=== PATIENT | male | born 1955 | race Two or more races ===

== ENCOUNTER 2024-05-24 05:35 | Day surgery (SDC) | payer MEDICARE, BC, SELFPAY ==
[2024-05-21 06:44] VITALS: BMI 33.2
[2024-05-21 08:19] LABS: Basophils # (Auto) 0.1 Thou/mm3 (0.0-0.2); Basophils % (Auto) 1 % (0-2.5); Eosinophils # (Auto) 0.1 Thou/mm3 (0.0-0.5); Eosinophils % (Auto) 3 % (0-10); Hemoglobin 15.1 g/dL (13.5-16.0); Immature Granulocytes % (Auto) 1 % (0-0); Immature Granulocytes Auto 0.03 Thou/mm3 (0.00-0.00); Lymphocytes # (Auto) 1.3 Thou/mm3 (1.0-4.8); Lymphocytes % (Auto) 27 % (10-50); Mean Corpuscular HGB Conc 34.3 g/dl (31.0-37.0); Mean Corpuscular Hemoglobin 30.9 pg (25.0-35.0); Mean Corpuscular Volume 90 fL (80-100); Monocytes # (Auto) 0.6 Thou/mm3 (0.0-0.8); Monocytes % (Auto) 13 % (0-12); Neutrophils # (Auto) 2.9 Thou/mm3 (1.8-7.7); Neutrophils % (Auto) 57 % (37-80); Nucleated Red Blood Cell % 0 /100 WBC (0); Platelet Count 168 Thou/mm3 (140-440); Red Blood Count 4.88 Miln/mm3 (4.50-5.90)
[2024-05-21 08:32] LABS: Alanine Aminotransferase 24 U/L (10-49); Albumin, Serum 4.9 gm/dL (3.4-4.8); Albumin/Globulin Ratio 1.9 (1.2-2.2); Alkaline Phosphatase 78 U/L (46-116); Anion Gap 7 (7-16); Aspartate Amino Transferase 24 U/L (0-34); BUN/Creatinine Ratio 21 Ratio (12-20); Bilirubin,Total 0.8 mg/dL (0.3-1.2); Blood Urea Nitrogen 23 mg/dL (9-23); Calcium 9.4 mg/dL (8.3-10.6); Calcium (Corrected) 9.4 mg/dL (8.5-10.1); Chloride 102 mMol/L (98-107); Creatinine (Component) 1.1 mg/dL (0.6-1.3); Estimated Creatinine Clearance 67.8 mL/min (>60); Globulin 2.6 gm/dL (2.3-3.5); Glucose 106 mg/dL (74-106); Osmolality,Calculated 277 (275-295); Potassium 4.4 mMol/L (3.4-5.1); Sodium 137 mMol/L (136-145); Total Protein 7.5 gm/dL (5.7-8.2); eGFR > 60 See Note
[2024-05-21 09:42] LABS: INR 1.8 (0.9-1.3); Partial Thromboplastin Time 83.1 Seconds (22.0-36.0); Prothrombin Time 18.9 Seconds (9.0-12.2)
--- NOTE | 2024-05-21 15:32 | SUR.PREOP ---
Pt takes coumadin, Last dose Friday, pt was prescribed lovenox IM during the time he is not taking coumadin, Dr Winter notified, Pt INR order on arrival and also cardiac records reviewed with Dr Winter.
--- NOTE | 2024-05-21 20:11 | ESHP_ITS ---
RE: SIMON COLLINS : 1955 DATE OF ADMISSION: 05/24/2024 DATE OF SURGERY: 05/24/2024 CHIEF COMPLAINT: Pain, right knee. HISTORY OF PRESENT ILLNESS: The patient is a 68-year-old who has pain in his right knee. It is along the medial joint line. It is activity related. He has pain on exam. MRI scan consistent with a torn medial meniscus. His past medical history was reviewed. , with three children. BLOOD TRANSFUSION: Yes. OPERATIONS: 1. Cholecystectomy. 2. Back surgery x3 with fusion. 3. Left knee surgery. 4. Carpal tunnel surgery, right hand. ALLERGIES: FLOMAX. MEDICATIONS: 1. Metoprolol 2. Warfarin 3. ProAir 4. Aspirin 5. Acyclovir 6. Folic acid MAJOR MEDICAL ILLNESSES: Hypertension and arthritis. FAMILY HISTORY: Positive for TB, heart disease, myocardial infarction. REVIEW OF SYSTEMS: Weight is stable. Appetite is good. Energy level is good. Denies chest pain, productive cough, hemoptysis, hematemesis, hematochezia, melena, black tarry bowel movements. Denies dysuria or prior hematuria. Denies strokes, seizures, or syncopal episodes. No skin problems or change in moles. No rashes. No seizures. The patient does not smoke. Does not drink. PHYSICAL EXAMINATION: GENERAL: Shows well-developed, well-nourished male, in no acute distress. HEENT: Normocephalic without masses. EOMs full. Throat clear. NECK: Supple. CHEST: Clear to PA. HEART: Regular rate and rhythm. No murmurs or gallops. ABDOMEN: Soft, nontender. No masses. No organomegaly. BREASTS: Deferred. RECTAL: Deferred. GENITAL: Deferred. EXTREMITIES: Examination of the extremity shows that he has pain in his right knee. He has pain with valgus stress and Martin maneuver. Shree and drawer signs are negative. No genu recurvatum. Tibia does not stay posteriorly on the femur. Patellofemoral crepitus present. Grab test negative. ASSESSMENT: Torn medial meniscus, right knee. PLAN: Arthroscopic partial medial meniscectomy, right knee. Risks of procedure were explained to the patient, understanding and willing to proceed. DT: 18:52:52 TT: 20:11:00 Ref: [id number] - TID: [id number]
--- NOTE | 2024-05-21 20:16 | ESHP_ITS ---
RE: SIMON COLLINS : 1955 DATE OF ADMISSION: 05/24/2024 CHIEF COMPLAINT: Pain in right knee. HISTORY OF PRESENT ILLNESS: The patient is a 68-year-old male who has pain in his right knee. It is along the medial joint line. It is activity related. Changed position causes discomfort. He has catching and locking. He is not complaining of any pain in his right hip, right ankle, or foot. PAST MEDICAL HISTORY: His past medical history was reviewed. SOCIAL HISTORY: He is , with three children. BLOOD TRANSFUSIONS: Yes. OPERATIONS: 1. Cholecystectomy. 2. Back surgeries x3 with fusion. 3. Left knee surgery. 4. Carpal tunnel release. ALLERGIES: FLOMAX. MEDICATIONS: 1. Metoprolol. 2. Cialis. 3. Warfarin. 4. ProAir. 5. Aspirin. 6. Acyclovir. 7. Folic acid. MAJOR MEDICAL ILLNESSES: Hypertension, arthritis. FAMILY HISTORY: Positive for TB, heart disease, myocardial infarction. REVIEW OF SYSTEMS: Weight is stable. Appetite is good. Energy level is good. No chest pain, shortness of breath, orthopnea, paroxysmal nocturnal dyspnea, dyspnea on exertion, productive cough, or hemoptysis. No nausea, vomiting, diarrhea, constipation, hematemesis, hematochezia, melena, or black or tarry bowel movements. Denies dysuria or prior hematuria. Denies strokes, seizures, or syncopal episodes. The patient does not smoke. The patient does not drink. PHYSICAL EXAMINATION: GENERAL: Shows a well-developed, well-nourished male in no acute distress. He is alert and oriented. HEENT: Normocephalic and without masses. EOMs full without nystagmus. Pupils are equal, round, and reactive to light and accommodation. NECK: Supple. CHEST: Clear to P and A. No rales. No rhonchi and no wheezes. CARDIOVASCULAR: Heart has a regular rate and rhythm. No murmurs or gallops. ABDOMEN: Soft and nontender. No masses. No organomegaly. EXTREMITIES: Examination of his right knee shows he has pain along the medial joint line, pain with flexion and extension of his knee. He has pain with valgus stress and Martin maneuver. He does have a 1+ effusion. There is no pain over the quadriceps or patellar tendon. Patellofemoral crepitus. Minimal graft test negative. ASSESSMENT: Torn medial meniscus, right knee. PLAN: Arthroscopic partial medial meniscectomy. Risks of the procedure were explained to the patient. A signed informed consent was obtained in my office. DT: 18:57:05 TT: 20:14:00 Ref: [id number] - TID: [id number]
[2024-05-24] VITALS (7 sets, daily range): BP systolic 118–135; BP diastolic 68–78; PULSE 70–80; RESP 12–18; TEMP 36.6–36.9; O2SAT 94–100; BMI 32.9
[2024-05-24] MEDS: RINGERS LACTATED 1000 ML 1,000 ML 20 ML IV (07:01)
[2024-05-24 08:20] LABS: INR 1.2 (0.9-1.3)
--- NOTE | 2024-05-24 09:24 | SUR.PHASEI ---
0924 Patient arrived to recovery, LMA removed upon arrival, oxygen therapy initated 4L via oxy mask, breathing unlabored, vital signs stable, denies pain, dressing intact to right knee; ointment, fluffs soaked in dankins, abd, bais roll, stockinette, no bleeding noted, lung sounds clear upon auscultation, left dorsalis pedis pulses present when palapted, right posterior tibial pulses present with doppler, report received from Meng REAL and Diane GASPAR
--- NOTE | 2024-05-24 09:41 | ESOP_ITS ---
Date of Procedure 05/24/24 Pre Op Diagnosis Tear medial meniscus right knee Post Op Diagnosis 1. Tear medial meniscus right knee 2. Plica right knee Procedure 1. Arthroscopic partial medial meniscectomy right knee 2. Resection medial plica Findings Complex cleavage and radial tear posterior one third medial meniscus, hypertrophied medial plica Procedure Description Patient taken the operating room and the right knee was Enduronyl foot is the correct extremity. He was placed in the leg quach after general anesthesia was initiated. He received 2 g of Ancef. Superior medial anterior medial anterior lateral stab wounds were done using an 18-gauge spinal needle for portal placement. Instruments were introduced The patient had a large medial plica which was removed with the shaver. The medial joint compartment was entered and was noted to have a complex tear of the posterior one third of the medial meniscus with radial and cleavage components being present. It was removed with the nicolas basket and contoured with the 3.5 mm full-radius resector. It was probed and no additional tears present Anterior cruciate ligament intact. Lateral joint compartment was entered and the lateral meniscus was probed noted be intact there was no chondromalacia of the medial or lateral femoral condyles the patellofemoral joint looked unremarkable. Arthroscopic portals closed with a 4-0 nylon. Knee then distended with Marcaine and Duramorph. Bulky dressing was applied using Dakin soaked Kerlix sponges over Bactroban ointment dry Kerlix sponges ABD pad and 6 inch cut bias secured with net dressing. He was taken recovery room uneventfully. Sponge and needle counts correct. He was able to actively flex and extend his toes and feet. I shared the pictures with the family and gave them a set of his arthroscopic pictures and was told to bring those with him tomorrow when we see him in the office. He was told he could weight-bear to tolerance Anesthesia GETA Implants None Pathology / specimen None IVF Infused 650 Urine Output 0 Estimated Blood Loss 15 Condition Stable Disposition PACU Surgeon Hakeem Taylor MD Surgical Staff Operation Date: 05/24/24 07:30 Case Staff DONKEY RIDE OPERATOR: Yogesh Mena
--- NOTE | 2024-05-24 10:21 | SUR.PHASEII ---
1021 Patient meets discharge criteria from recovery, awake and alert, breathing unlabored, vital signs stable, denies pain, dressing intact; no bleeding noted, patient drinking apple juice, denies nausea, patient assisted with dressing into his clothing by his , discharge instructions given to patient and patients , signed discharge instructions. Patient given all his belongings prior to discharge, transported via wheelchair and left in a private vehicle.
== END 2024-05-24 10:21 | disposition home or self-care (01) ==
PROVIDERS: Anesthesiology; PCP Specialist; Referring Provider Orthopaedic Surgery; Visit Provider Orthopaedic Surgery
PROC: (CPT 29870; principal; 2024-05-24 07:30)
DX: S83.241A Other tear of medial meniscus, current injury, right knee, initial encounter (principal); M67.51 Plica syndrome, right knee; Z82.49 Family history of ischemic heart disease and other diseases of the circulatory system
CPT/HCPCS: 29881; 36415; 80053; 85025; 85610; 85730; A4217; A4649; J0690; J2250; J2274; J2704; J2795; J2919; J3010; J3490; J7120; A9270; J0665; J2270

== ENCOUNTER → 2024-05-31 | Outpatient (CLI) | payer MEDICARE, BC, SELFPAY ==
--- NOTE | 2024-05-31 | XR_ITS ---
Examination: Right elbow 3 views Technique: Elbow AP, oblique, lateral 3 views Exam date and time: May 31, 2024 1142 hours INDICATIONS: Elbow pain beginning 4 days ago. FINDINGS: Mild elbow osteoarthritis. No fracture. No dislocation IMPRESSION: Mild elbow osteoarthritis.
== END | disposition home or self-care (01) ==
PROVIDERS: PCP Specialist; Referring Provider Orthopaedic Surgery; Visit Provider Orthopaedic Surgery
DX: M19.021 Primary osteoarthritis, right elbow (principal)
CPT/HCPCS: 73080

== ENCOUNTER → 2024-09-02 | Outpatient (CLI) | payer OTHER, SELFPAY ==
--- NOTE | 2024-09-02 14:29 | XR_ITS ---
Examination: Shoulder,left, 3 views Technique: Shoulder AP internal rotation, AP external rotation, Y view shoulder, 3 views Exam date and time :September 02, 2024 1431 hours INDICATIONS: Left shoulder pain several years. FINDINGS: Moderate osteoarthritis glenohumeral joint No fracture or shoulder dislocation No calcific tendinitis IMPRESSION: Moderate osteoarthritis glenohumeral joint
== END | disposition home or self-care (01) ==
LOC: CDIM 14:13
PROVIDERS: PCP Specialist; Referring Provider Orthopaedic Surgery; Visit Provider Orthopaedic Surgery
DX: M19.012 Primary osteoarthritis, left shoulder (principal)
CPT/HCPCS: 73030

== ENCOUNTER → 2024-10-19 | Outpatient (CLI) | payer MEDICARE, BC, SELFPAY ==
[2024-10-19 16:41] LABS: Basophils % (Auto) 1 % (0-2.5); Eosinophils # (Auto) 0.1 Thou/mm3 (0.0-0.5); Eosinophils % (Auto) 2 % (0-10); Hematocrit 43.8 % (41.0-53.0); Hemoglobin 15.2 g/dL (13.5-16.0); Immature Granulocytes % (Auto) 0 % (0-0); Immature Granulocytes Auto 0.02 Thou/mm3 (0.00-0.00); Lymphocytes # (Auto) 1.6 Thou/mm3 (1.0-4.8); Lymphocytes % (Auto) 26 % (10-50); Mean Corpuscular HGB Conc 34.7 g/dl (31.0-37.0); Mean Corpuscular Hemoglobin 31.6 pg (25.0-35.0); Mean Corpuscular Volume 91 fL (80-100); Monocytes # (Auto) 0.7 Thou/mm3 (0.0-0.8); Monocytes % (Auto) 11 % (0-12); Neutrophils # (Auto) 3.8 Thou/mm3 (1.8-7.7); Neutrophils % (Auto) 60 % (37-80); Nucleated Red Blood Cell % 0 /100 WBC (0); Platelet Count 162 Thou/mm3 (140-440); RDW Standard Deviation 44.4 fL (35.1-43.9); Red Blood Count 4.81 Miln/mm3 (4.50-5.90); White Blood Count 6.3 Thou/mm3 (3.8-10.6)
[2024-10-19 16:46] LABS: INR 2.3 (0.9-1.3); Prothrombin Time 24.1 Seconds (9.0-12.2)
[2024-10-19 16:59] LABS: Glucose Estimated Average 120 mg/dL (80-131); Hemoglobin A1C 5.8 % Hgb (4.8-6.0)
[2024-10-19 17:05] LABS: Alanine Aminotransferase 25 U/L (10-49); Albumin, Serum 4.6 gm/dL (3.4-4.8); Albumin/Globulin Ratio 1.8 (1.2-2.2); Alkaline Phosphatase 100 U/L (46-116); Anion Gap 8 (7-16); Aspartate Amino Transferase 24 U/L (0-34); BUN/Creatinine Ratio 21 Ratio (12-20); Bilirubin,Total 0.6 mg/dL (0.3-1.2); Blood Urea Nitrogen 21 mg/dL (9-23); C-Reactive Protein < 0.5 mg/dL (0.0-0.9); Carbon Dioxide 25.9 mMol/L (20.0-31.0); Cardiac Risk Estimate 2.9 RATIO (4.0-6.7); Chloride 107 mMol/L (98-107); Cholesterol 162 mg/dL (132-200); Globulin 2.5 gm/dL (2.3-3.5); Glucose 106 mg/dL (74-106); HDL Cholesterol 55 mg/dL (40-60); LDL Cholesterol,Calculated 59 mg/dL (0-130); Osmolality,Calculated 284 (275-295); Potassium 4.3 mMol/L (3.4-5.1); Sodium 141 mMol/L (136-145); Thyroid Stimulating Hormone 1.72 uIU/mL (0.55-4.78); Total Protein 7.1 gm/dL (5.7-8.2); Triglycerides 240 mg/dL (30-150); eGFR > 60 See Note
[2024-10-19 17:22] LABS: Sed Rate (ESR) 15 mm/hr (0-20)
== END | disposition home or self-care (01) ==
PROVIDERS: PCP Specialist; Referring Provider Specialist; Visit Provider Specialist
DX: I10 Essential (primary) hypertension (principal); G44.52 New daily persistent headache (NDPH); D68.62 Lupus anticoagulant syndrome
CPT/HCPCS: 36415; 80053; 80061; 83036; 84443; 85025; 85610; 85652; 86140

== ENCOUNTER → 2024-10-20 | Outpatient (CLI) | payer MEDICARE, BC, SELFPAY ==
--- NOTE | 2024-10-20 11:57 | XR_ITS ---
Examination: MRI of brain without intravenous contrast. MRI brain with intravenous contrast. MRA brain without contrast Date and time of exam:October 20, 2024 1239 hours Comparison May 20, 2013 INDICATIONS: Hypertension headaches this week Technique: Multiple axial and sagittal images of the brain to been obtained. Siemens high-resolution 1.52 Janessa short bore scanner utilized. Sagittal sections, T1 weighted images, TR 500, TE 14, are performed. Axial sections proton-density and T2-weighted images have been obtained. Inversion recovery axial images, TR 9260, TE 111, TR 2500. Diffusion weighted images, axial sections, TR 4800, TE 128, B value 1000. Axial sections, ADC map, TR 4800, TE 128. Axial and coronal images were also obtained post 20 cc gadolinium administered intravenously. Findings:: Enlargement of the sella turcica is not present. The optic chiasm and infundibular stalk are not remarkable. There is no localized enlargement of the medulla or mark. Fourth ventricle and cerebellar tonsils appear normal in position. No subacute area of hemorrhage density is seen. Fourth ventricle is midline. Mass in the cerebellopontine angle region is not evident. 7th and 8th nerve complexes exhibit symmetry Globes are symmetrical Orbital musculature including medial lateral rectus muscles do not exhibit abnormality Increased white matter signal is moderate Effacement of the cortical sulcal markings is not identified. Mass effect upon the ventricular system is not identified. Diffusion-weighted images demonstrate no focus of restricted diffusion Contrast images demonstrate no abnormal enhancement MRA images demonstrate no cerebral large vessel occlusions Impression: Negative for acute hemorrhage mass effect or midline shift No acute infarct Moderate chronic microvascular white matter change
== END | disposition home or self-care (01) ==
LOC: SDIM 11:27
PROVIDERS: PCP Specialist; Referring Provider Specialist; Visit Provider Specialist
DX: R90.82 White matter disease, unspecified (principal)
CPT/HCPCS: 70553; A9579

== ENCOUNTER → 2024-10-25 | Outpatient (CLI) | payer MEDICARE, BC, SELFPAY ==
[2024-10-25 16:38] LABS: Creatinine MALB Rnd Ur 107 mg/dL (30-125); Microalbumin Creat Ratio 7 mg/gCrea (<30); Microalbumin, Random Urine 7 mg/L (0-300)
== END | disposition home or self-care (01) ==
LOC: SLDO 15:43
PROVIDERS: PCP Specialist; Referring Provider Specialist; Visit Provider Specialist
DX: I1A.0 Resistant hypertension (principal)
CPT/HCPCS: 82043; 82570

== ENCOUNTER → 2024-11-10 | Outpatient (CLI) | payer MEDICARE, BC, SELFPAY ==
--- NOTE | 2024-11-10 13:00 | XR_ITS ---
Examination: Renal sonography Renal Doppler sonographic evaluation Date and time: November 02, 2024 1248 hours INDICATIONS: Uncontrolled hypertension 2 weeks TECHNIQUE AND FINDINGS: Grayscale sonographic images kidneys Assessment peak systolic arterial velocities calculation resistive indices and renal aortic ratios Right kidney 11.8 cm cortex 1.8 cm Left kidney 12.9 cm cortex 1.6 cm No bilateral elevation peak systolic velocities Normal bilateral resistive indices Normal bilateral renal aortic ratios Moderate bilateral renal parenchyma scar formation IMPRESSION: Moderate bilateral renal parenchymal scar formation No sonographic findings of renal artery stenosis
== END | disposition home or self-care (01) ==
LOC: CDIM 12:22
PROVIDERS: PCP Specialist; Referring Provider Specialist; Visit Provider Specialist
DX: N28.89 Other specified disorders of kidney and ureter (principal)
CPT/HCPCS: 93975

== ENCOUNTER → 2024-11-18 | Outpatient (CLI) | payer MEDICARE, BC, SELFPAY ==
[2024-11-18 09:25] LABS: Collection Type, Urine Clean Catch
[2024-11-18 10:17] LABS: Bilirubin,Urine Negative (Negative); Blood,Urine Negative (Negative); Clarity,Urine Clear (Clear/Hazy); Color,Urine Lt-Yellow (Lt Yel-Yel); Culture Indicated,Urine Not Indicated; Glucose, Urine Negative (Negative); Ketones,Urine Negative (Negative); Leukocyte Esterase,Urine Negative (Negative); Nitrite,Urine Negative (Negative); PH,Urine 6.5 (5.0-7.0); Protein,Urine Negative (Neg - Trace); RBC,Urine 2 /hpf (0-3); Specific Gravity,Urine 1.017 (1.001-1.035); Squamous Epithelial Cell,Urine < 1 /hpf (0-5); Urobilinogen,Urine Negative mg/dL (0.0-1.0); WBC,Urine 1 /hpf (0-5)
== END | disposition home or self-care (01) ==
PROVIDERS: Referring Provider Urology; Visit Provider Urology
DX: N39.0 Urinary tract infection, site not specified (principal); R30.0 Dysuria
CPT/HCPCS: 81001; 87086

== ENCOUNTER 2024-12-11 11:57 | Emergency (ER) | payer MEDICARE, BC, SELFPAY ==
[2024-12-11 11:58] VITALS: BMI 33.0
[2024-12-11 12:39] VITALS: BP 137/79; PULSE 74; RESP 18; TEMP 37; O2SAT 95; BMI 33.5
--- NOTE | 2024-12-11 14:50 | PC.NURSE ---
FC intact and patent draining to gravity with leg bag, initial output 420ml of pale yellow urine. UA sent for culture. Patient currently on ABX Bactrum DS prescribe by urologist.
[2024-12-11 14:58] LABS: Collection Type, Urine Voided; Squamous Epithelial Cell,Urine 0 /hpf (0-5)
--- NOTE | 2024-12-11 15:15 | PD.EDMALE ---
ED Male Genitalurinary RME/HPI General Chief complaint: Urogenital-Male Stated complaint: TROUBLE VOIDING TODAY, PROSTATITIS x 3 WEEKS Time Seen by Provider: 12/11/24 12:29 Arrival date/time: 12/11/24 11:57 This is a 69-year-old male that comes into the emergency room with complaints of urinary retention. Patient is currently seeing his urologist for this problem. Patient is currently on antibiotic treatment for prostatitis. Patient denies any fever or chills. Patient states he is currently on antibiotics, Bactrim. Today patient complained of urinary retention. Patient requesting Alex catheter. Related Data Home Medications ?Medication ?Instructions ?Recorded ?Confirmed magnesium oxide 400 mg (241.3 mg 800 mg PO DAILY #0 tabs 10/06/15 05/21/24 magnesium) tablet simvastatin 10 mg tablet (Zocor) 10 mg PO HS #0 tabs 10/06/15 05/21/24 acyclovir 400 mg tablet 400 mg PO QDAY 05/21/24 05/21/24 albuterol sulfate 90 mcg/actuation 2 puff inhalation Q6H PRN 05/21/24 05/21/24 aerosol inhaler Shortness Of Breath Or Wheezing aspirin 81 mg tablet,delayed 81 mg PO QDAY 05/21/24 05/21/24 release calcium 600 mg (as 1 tab PO QDAY 05/21/24 05/21/24 carbonate)-vitamin D3 10 mcg (400 unit) tablet (Calcium 600 + D(3)) enoxaparin 80 mg/0.8 mL 80 mg subcut Q12H 05/21/24 05/24/24 subcutaneous syringe (Lovenox) famotidine 40 mg tablet 40 mg PO HS 05/21/24 05/21/24 folic acid 400 mcg tablet 0.4 mg PO QDAY 05/21/24 05/21/24 metoprolol succinate 50 mg 50 mg PO BID 05/21/24 05/24/24 tablet,extended release 24 hr nortriptyline 10 mg capsule 10 mg PO BID 05/21/24 05/24/24 omeprazole 40 mg capsule,delayed 40 mg PO QDAY 05/21/24 05/21/24 release tadalafil 5 mg tablet (Cialis) 5 mg PO QDAY 05/21/24 05/21/24 warfarin 2 mg tablet 2 mg PO Q OTHER DAY 05/21/24 05/21/24 warfarin 2.5 mg tablet 2.5 mg PO Q OTHER DAY 05/21/24 05/21/24 Allergies Allergy/AdvReac Type Severity Reaction Status Date / Time tamsulosin Allergy Severe Difficulty Verified 12/11/24 11:59 Breathing Course Orders Category Date Time Status Alex [Urinary Catheter] QS Care 12/11/24 12:42 Active Urinalysis, C/S if Indicated Stat Lab 12/11/24 14:45 Received Vital Signs Vital signs: Vital Signs Temperature 98.6 F 12/11/24 12:39 Pulse Rate 74 12/11/24 12:39 Respiratory Rate 18 12/11/24 12:39 Blood Pressure 137/79 H 12/11/24 12:39 Pulse Oximetry (%) 95 12/11/24 12:39 Oxygen Delivery Method Room Air 12/11/24 12:39 Urogenital - Male MDM Narrative MDM Narrative:: I spoke to patient at length. Patient is currently on antibiotic treatment. Patient states that he has a follow-up appointment with his urologist. I talked to patient about getting a CT scan to make sure he does not have any kidney stones or any other issues. Patient states he did not want a CT scan if he would follow-up with his primary provider. Patient has a Alex catheter that is now draining. I spoke to patient at length and states he will come back to the emergency room if symptoms change or worsen he is in a continue his current antibiotic treatment. Will send a urine culture and have his urologist follow-up with urine culture. Discharge Plan Plan Patient Disposition: HOME (Self Care) Patient condition on transfer: Stable Prescriptions/Referrals Prescriptions/Med Rec: No Action simvastatin [Zocor] 10 MG tablet 10 mg PO HS Qty: 0 magnesium oxide 400 MG tablet 800 mg PO DAILY Qty: 0 metoprolol succinate 50 mg Tablet Extended Release 24 Hr 50 mg PO BID famotidine 40 mg Tablet 40 mg PO HS warfarin [Coumadin] 2.5 mg Tablet 2.5 mg PO Q OTHER DAY Rx Instructions: on odd numbered days acyclovir 400 mg Tablet 400 mg PO QDAY folic acid 400 mcg Tablet 0.4 mg PO QDAY omeprazole 40 mg Capsule,Delayed Release(Dr/Ec) 40 mg PO QDAY aspirin 81 mg Tablet,Delayed Release (Dr/Ec) 81 mg PO QDAY nortriptyline 10 mg Capsule 10 mg PO BID warfarin [Coumadin] 2 mg Tablet 2 mg PO Q OTHER DAY Rx Instructions: on odd numbered days albuterol sulfate [ProAir HFA] 90 mcg/actuation Hfa Aerosol Inhaler 2 puff INHALATION Q6H PRN (Reason: Shortness Of Breath Or Wheezing) enoxaparin [Lovenox] 80 mg/0.8 mL Syringe 80 mg SUBCUT Q12H Rx Instructions: last dose Friday tadalafil [Cialis] 5 mg Tablet 5 mg PO QDAY calcium carbonate-vitamin D3 [Calcium 600 + D(3)] 600 mg-10 mcg (400 unit) Tablet 1 tab PO QDAY Referrals: Huseyin Ceron MD [Primary Care Provider] - In 1 week Problem List Clinical Impression: Acute urinary retention Patient/Caregiver Discharge Instructions Discharge Activity: activity as tolerated Education Materials: ED Urinary Retention, Male Additional Instructions: Please follow-up as scheduled with urologist. Please make sure catheter is draining well. Come back to the emergency room if symptoms change or worsen. Print Language: Fijian Stand Alone Forms: [facility]ia Award Info., Patient Portal Info Letter PA/[employer] OF [employer]IC[employer] Supervising Physician PA/[employer]IC[employer] Supervising Physician: GILLIAN
[2024-12-11 15:30] LABS: Bilirubin,Urine Negative (Negative); Blood,Urine Negative (Negative); Clarity,Urine Clear (Clear/Hazy); Color,Urine Lt-Yellow (Lt Yel-Yel); Culture Indicated,Urine Not Indicated; Glucose, Urine Negative (Negative); Ketones,Urine Negative (Negative); Leukocyte Esterase,Urine Negative (Negative); Nitrite,Urine Negative (Negative); Protein,Urine Negative (Neg - Trace); RBC,Urine 4 /hpf (0-3); Specific Gravity,Urine 1.022 (1.001-1.035); Urobilinogen,Urine Negative mg/dL (0.0-1.0); WBC,Urine < 1 /hpf (0-5)
== END 2024-12-11 15:50 | disposition home or self-care (01) ==
PROVIDERS: Nurse Practitioner Family; Emergency Provider Emergency Medicine; PCP Specialist
DX: R33.9 Retention of urine, unspecified (principal)
CPT/HCPCS: 51702; 81001; 99283; A4314

== ENCOUNTER → 2024-12-15 | Outpatient (CLI) | payer MEDICARE, BC, SELFPAY ==
[2024-12-15 12:03] LABS: Prostate Specific Antigen 0.88 ng/mL (0-4.00)
== END | disposition home or self-care (01) ==
LOC: COPL 10:42
PROVIDERS: PCP Specialist; Referring Provider Urology; Visit Provider Urology
DX: N40.1 Benign prostatic hyperplasia with lower urinary tract symptoms (principal)
CPT/HCPCS: 36415; 84153

== ENCOUNTER → 2025-05-09 | Outpatient (CLI) | payer MEDICARE, BC, SELFPAY ==
[2025-05-09 08:32] LABS: Basophils # (Auto) 0.0 Thou/mm3 (0.0-0.2); Basophils % (Auto) 1 % (0-2.5); Eosinophils # (Auto) 0.1 Thou/mm3 (0.0-0.5); Eosinophils % (Auto) 3 % (0-10); Hematocrit 42.9 % (41.0-53.0); Hemoglobin 14.9 g/dL (13.5-16.0); Immature Granulocytes Auto 0.03 Thou/mm3 (0.00-0.00); Lymphocytes # (Auto) 1.6 Thou/mm3 (1.0-4.8); Lymphocytes % (Auto) 30 % (10-50); Mean Corpuscular HGB Conc 34.7 g/dl (31.0-37.0); Mean Corpuscular Hemoglobin 31.8 pg (25.0-35.0); Mean Corpuscular Volume 92 fL (80-100); Monocytes # (Auto) 0.6 Thou/mm3 (0.0-0.8); Monocytes % (Auto) 12 % (0-12); Neutrophils # (Auto) 2.9 Thou/mm3 (1.8-7.7); Neutrophils % (Auto) 55 % (37-80); Nucleated Red Blood Cell # 0.00 Thou/mm3 (0.00-0.00); Nucleated Red Blood Cell % 0 /100 WBC (0); Platelet Count 165 Thou/mm3 (140-440); RDW Standard Deviation 42.5 fL (35.1-43.9); Red Blood Count 4.68 Miln/mm3 (4.50-5.90); White Blood Count 5.2 Thou/mm3 (3.8-10.6)
[2025-05-09 08:48] LABS: Alanine Aminotransferase 27 U/L (10-49); Albumin, Serum 5.0 gm/dL (3.4-4.8); Alkaline Phosphatase 76 U/L (46-116); Anion Gap 9 (7-16); Aspartate Amino Transferase 32 U/L (0-34); BUN/Creatinine Ratio 17 Ratio (12-20); Bilirubin,Direct 0.2 mg/dL (0.0-0.3); Bilirubin,Total 0.7 mg/dL (0.3-1.2); Blood Urea Nitrogen 15 mg/dL (9-23); Calcium 9.3 mg/dL (8.3-10.6); Carbon Dioxide 28.4 mMol/L (20.0-31.0); Cardiac Risk Estimate 3.6 RATIO (4.0-6.7); Chloride 106 mMol/L (98-107); Cholesterol 167 mg/dL (132-200); Creatinine (Component) 0.9 mg/dL (0.6-1.3); Free T4 (Free Thyroxine) 1.44 ng/dL (0.89-1.76); Glucose 120 mg/dL (74-106); HDL Cholesterol 46 mg/dL (40-60); LDL Cholesterol,Calculated 77 mg/dL (0-130); Osmolality,Calculated 286 (275-295); Potassium 4.9 mMol/L (3.4-5.1); Sodium 143 mMol/L (136-145); Thyroid Stimulating Hormone 1.58 uIU/mL (0.55-4.78); Total Protein 7.3 gm/dL (5.7-8.2); Triglycerides 221 mg/dL (30-150); eGFR > 60 See Note
== END | disposition home or self-care (01) ==
PROVIDERS: PCP Internal Medicine Cardiovascular Disease; Referring Provider Internal Medicine Cardiovascular Disease; Visit Provider Internal Medicine Cardiovascular Disease
DX: I10 Essential (primary) hypertension (principal); E78.5 Hyperlipidemia, unspecified; I49.9 Cardiac arrhythmia, unspecified
CPT/HCPCS: 36415; 80048; 80061; 80076; 84439; 84443; 85025